=== PATIENT | female | born 1985 | race African-American/Black ===

== ENCOUNTER 2022-09-28 10:52 | Observation (INO) | payer MEDICAID, OTHER ==
[~2022-09-28] VITALS: Ht 162.6 cm; Wt 79.4 kg
[2022-09-28] MEDS ORDERED: LACTATED RINGERS 1,000 ML IV SCH (14:45)
[2022-09-28 15:14] LABS: CLARITY URINE CLEAR (CLEAR); COLOR URINE YELLOW (YELLOW); KETONES URINE NEGATIVE (NEGATIVE); LEUKOCYTE ESTERASE URINE TRACE (NEGATIVE); NITRITE URINE NEGATIVE (NEGATIVE); OCCULT BLOOD URINE NEGATIVE (NEGATIVE); PH URINE 7.5 (4.5-8.0); PROTEIN URINE 1+ (NEGATIVE); SPECIFIC GRAVITY URINE 1.009 (1.005-1.030)
[2022-09-28] MEDS: LACTATED RINGERS 1,000 ML IV SCH ×3 (16:52→17:14)
== END 2022-09-28 18:00 | disposition home or self-care (01) ==
LOC: 8 EST LDRP 10:52
PROVIDERS: ADMIT Obstetrics & Gynecology; ATTEND Obstetrics & Gynecology
DX: O42.913 Preterm premature rupture of membranes, unspecified as to length of time between rupture and onset of labor, third trimester (principal); O30.003 Twin pregnancy, unspecified number of placenta and unspecified number of amniotic sacs, third trimester; Z3A.34 34 weeks gestation of pregnancy
CPT/HCPCS: 59025; 76815; 76818; 81003; 96360; G0378; 96361; 99281

== ENCOUNTER 2022-10-15 09:30 | Inpatient (IN) | payer OTHER ==
[~2022-10-15] VITALS: Ht 162.6 cm; Wt 84.4 kg
[2022-10-15] MEDS ORDERED: OXYTOCIN 30 UNITS/500ML NS PMX 500 ML IV SCH ×2 (09:45→15:00)
[2022-10-15 10:24] LABS: BASOPHILS % 0.1 % (0.0-2.0); EOSINOPHILS % 0.1 % (0.0-5.0); HEMATOCRIT. 35.5 % (36.0-48.0); HEMOGLOBIN. 12.1 g/dL (12.0-16.0); LYMPHOCYTES % 16.8 % (20.0-50.0); MEAN CORPUSCULAR HEMOGLOBIN 30.2 pg (28.0-32.0); MEAN CORPUSCULAR VOLUME 88.5 fL (81.0-99.0); MEAN PLATELET VOLUME 8.4 fl (7.4-10.4); MONOCYTES % 7.4 % (2.0-8.0); NEUTROPHILS % 75.6 % (40.0-76.0); PLATELET 231 x1000/uL (130-400); RED BLOOD CELL COUNT 4.01 mill/uL (4.2-5.4); RED CELL DISTRIBUTION WIDTH 14.2 % (11.6-14.6)
[2022-10-15 10:52] LABS: CLARITY URINE CLEAR (CLEAR); COLOR URINE YELLOW (YELLOW); KETONES URINE 2+ (NEGATIVE); LEUKOCYTE ESTERASE URINE 2+ (NEGATIVE); NITRITE URINE NEGATIVE (NEGATIVE); OCCULT BLOOD URINE TRACE (NEGATIVE); PH URINE 6.5 (4.5-8.0); PROTEIN URINE NEGATIVE (NEGATIVE); SPECIFIC GRAVITY URINE 1.014 (1.005-1.030)
[2022-10-15 11:17] LABS: *AMPHETAMINES SCREEN URINE NEGATIVE (NEGATIVE); *BARBITURATES SCREEN URINE NEGATIVE (NEGATIVE); *BENZODIAZEPINES SCREEN URINE NEGATIVE (NEGATIVE); *COCAINE SCREEN URINE NEGATIVE (NEGATIVE); CANNABINOID URINE SCREEN NEGATIVE (NEGATIVE); METHADONE URINE SCREEN NEGATIVE (NEGATIVE); OPIATES URINE SCREEN NEGATIVE (NEGATIVE); PHENCYCLIDINE URINE SCREEN NEGATIVE (NEGATIVE)
[2022-10-15] MEDS ORDERED: MORPHINE SULFATE/PF 1MG/ML 10ML AMP ONE (12:29)
[2022-10-15] MEDS ORDERED: ONDANSETRON HCL 4MG/2ML INJ ONE ×2 (12:30→12:42)
[2022-10-15] MEDS ORDERED: DEXAMETHASONE 4MG/ML 1ML VIAL ONE (12:42)
[2022-10-15] MEDS ORDERED: CEFAZOLIN SODIUM 1000MG/VIAL ONE (12:42)
[2022-10-15] MEDS ORDERED: PHENYLEPHRINE HCL 10 MG/ML 1ML (IV VIAL) IV ONE (12:43)
[2022-10-15] MEDS ORDERED: EPHEDRINE SULFATE 50MG/ML VIAL ONE (12:43)
[2022-10-15] MEDS ORDERED: OXYTOCIN 10 UNITS/ML 1ML ONE ×6 (12:43)
[2022-10-15] MEDS ORDERED: FENTANYL CITRATE/PF 50MCG/ML 2ML VIAL IV PRN (14:00)
[2022-10-15] MEDS ORDERED: KETOROLAC 30MG/ML VIAL IV PRN (14:00)
[2022-10-15] MEDS ORDERED: MORPHINE SULFATE 2 MG/ML CPJ (NOT FOR IM USE) IV PRN (14:00)
[2022-10-15] MEDS ORDERED: NALOXONE HCL 0.4 MG/ML 1ML VIAL IV PRN (14:00)
[2022-10-15 14:57] LABS: PARTIAL THROMBOPLASTIN TIME 25.6 sec (23.4-31.0); PROTHROMBIN TIME 10.3 sec (9.6-11.0)
[2022-10-15 15:00] LABS: HEPATITIS B SURFACE ANTIGEN NEGATIVE
[2022-10-15] MEDS ORDERED: LANOLIN OINT 7GM TUBE TOP PRN (15:00)
[2022-10-15] MEDS ORDERED: DIPHENHYDRAMINE 25MG CAPSULE PO PRN (15:00)
[2022-10-15] MEDS ORDERED: BISACODYL 10MG SUPP PR PRN (15:00)
[2022-10-15] MEDS ORDERED: ONDANSETRON HCL 4MG/2ML INJ IV PRN (15:00)
[2022-10-15] MEDS ORDERED: HYDROCODONE/ACETAMINOPHEN 5/325MG TABLET PO PRN (15:00)
[2022-10-15] MEDS ORDERED: RHO(D) IMMUNE GLOBULIN 300 MCG/SYR IM PRN (15:00)
[2022-10-15 17:30] VITALS: BP 104/60
[2022-10-15 19:30] VITALS: BP 118/55
[2022-10-15] MEDS: KETOROLAC 30MG/ML VIAL IV PRN (20:57)
[2022-10-15] MEDS: DOCUSATE SODIUM 100MG CAPSULE PO SCH (20:57)
[2022-10-16] VITALS: BP 105/57
[2022-10-16] MEDS ORDERED: CEFAZOLIN 2,000 MG in DEXT 5% WATER 100 ML IV SCH ×2
[2022-10-16] MEDS: LACTATED RINGERS 1,000 ML IV SCH ×2 (03:24→09:49)
[2022-10-16] MEDS: KETOROLAC 30MG/ML VIAL IV PRN (03:24)
[2022-10-16 04:00] VITALS: BP 107/63
[2022-10-16 07:30] VITALS: BP 105/66
[2022-10-16] MEDS: PRENATAL VIT/FE FUMARATE/FA TABLET PO SCH (08:24)
[2022-10-16 10:45] LABS: BASOPHILS % 0.1 % (0.0-2.0); HEMATOCRIT. 26.8 % (36.0-48.0); HEMOGLOBIN. 9.2 g/dL (12.0-16.0); LYMPHOCYTES % 15.5 % (20.0-50.0); MEAN PLATELET VOLUME 8.5 fl (7.4-10.4); MONOCYTES % 10.4 % (2.0-8.0); PLATELET 211 x1000/uL (130-400); RED BLOOD CELL COUNT 2.97 mill/uL (4.2-5.4); RED CELL DISTRIBUTION WIDTH 13.9 % (11.6-14.6)
[2022-10-16 13:06] LABS: HIV SCREEN 4G Non Reactive (Non Reactive)
[2022-10-16 15:45] VITALS: BP 100/67
[2022-10-16 20:00] VITALS: BP 106/69
[2022-10-16] MEDS: IBUPROFEN 400MG TABLET PO PRN (21:44)
[2022-10-16] MEDS: DOCUSATE SODIUM 100MG CAPSULE PO SCH (21:44)
[2022-10-17 04:00] VITALS: BP 107/70
[2022-10-17] MEDS: HYDROCODONE/ACETAMINOPHEN 5/325MG TABLET PO PRN ×2 (09:04→17:11)
[2022-10-17] MEDS: PRENATAL VIT/FE FUMARATE/FA TABLET PO SCH (09:04)
[2022-10-17 09:42] VITALS: BP 109/71
[2022-10-17 16:20] VITALS: BP 108/68
[2022-10-17] MEDS: DOCUSATE SODIUM 100MG CAPSULE PO SCH (21:27)
[2022-10-17] MEDS: IBUPROFEN 400MG TABLET PO PRN (21:28)
[2022-10-17 22:00] VITALS: BP 112/78
[2022-10-18 06:00] VITALS: BP 99/66
[2022-10-18 06:48] LABS: BASOPHILS % 0.3 % (0.0-2.0); EOSINOPHILS % 0.5 % (0.0-5.0); HEMATOCRIT. 23.3 % (36.0-48.0); HEMOGLOBIN. 8.1 g/dL (12.0-16.0); LYMPHOCYTES % 21.7 % (20.0-50.0); MEAN CORPUSCULAR HEMOGLOBIN 30.6 pg (28.0-32.0); MEAN CORPUSCULAR VOLUME 88.5 fL (81.0-99.0); MEAN PLATELET VOLUME 7.6 fl (7.4-10.4); MONOCYTES % 8.4 % (2.0-8.0); NEUTROPHILS % 69.1 % (40.0-76.0); PLATELET 220 x1000/uL (130-400); RED BLOOD CELL COUNT 2.64 mill/uL (4.2-5.4); RED CELL DISTRIBUTION WIDTH 13.9 % (11.6-14.6)
[2022-10-18 07:45] VITALS: BP 106/72
[2022-10-18] MEDS: IBUPROFEN 400MG TABLET PO PRN (08:08)
[2022-10-18] MEDS: PRENATAL VIT/FE FUMARATE/FA TABLET PO SCH (08:08)
[2022-10-18] MEDS ORDERED: IBUP-2028 PO (10:52)
== END 2022-10-18 13:55 | disposition home or self-care (01) | DRG 539 ==
LOC: 8 EST LDRP 09:30 → OBSVTOIN 09:55 → 8EST 17:20
PROVIDERS: ADMIT Obstetrics & Gynecology; ATTEND Obstetrics & Gynecology
PROC: 10D00Z1 Extraction of Products of Conception, Low, Open Approach (ICD-10-PCS; principal; 2022-10-15)
PROC: 0UB70ZZ Excision of Bilateral Fallopian Tubes, Open Approach (ICD-10-PCS; 2022-10-15)
DX: O48.0 Post-term pregnancy (principal); Z37.2 Twins, both liveborn; O99.284 Endocrine, nutritional and metabolic diseases complicating childbirth; E05.90 Thyrotoxicosis, unspecified without thyrotoxic crisis or storm; Z20.822 Contact with and (suspected) exposure to COVID-19; O30.043 Twin pregnancy, dichorionic/diamniotic, third trimester; O34.211 Maternal care for low transverse scar from previous cesarean delivery; Z3A.40 40 weeks gestation of pregnancy; Z14.1 Cystic fibrosis carrier; Z30.2 Encounter for sterilization; O69.2XX2 Labor and delivery complicated by other cord entanglement, with compression, fetus 2
CPT/HCPCS: 36415; 76815; 80305; 81003; 85025; 86592; 86762; 86850; 86900; 87340; 87389; 87426; 88302; 88307; 99281; G0378; J0690; J1100; J1885; J2274; J2370; J2405; J3490; J7060; J7120